=== PATIENT | male | born 1970 | race Caucasian/White ===

== ENCOUNTER 2018-07-04 07:38 | Outpatient (CLI) | payer OTHER ==
--- NOTE | 2018-07-04 10:33 | CT ---
CT of abdomen and pelvis: 07/04/2018 COMPARISON: 03/16/2013 HISTORY: "Knot" in the epigastric region, history of colon cancer with colostomy. History of chemothe rapy and radiation TECHNIQUE: Axial CT imaging is obtained at 5 mm intervals from the lung bases through the pubic symph ysis with intravenous and oral contrast. Coronal reformatted imaging obtained. FINDINGS: There are multiple subcentimeter pulmonary nodules identified within the imaged lung bases, including multiple subcentimeter pulmonary nodules within the right middle lobe and bilateral lower lobes. When compared to the 2013 examination, these pulmonary nodules are new. No free intraper itoneal air is appreciated. There is a new large heterogeneously hypodense mass lesion involving the majority of the left lobe of the liver with peripheral anterior capsular retraction. This lesion measures at least 11 cm in transverse dimension and 9 cm in craniocaudal dimension. This may represent numerous confluent lesion s or is solitary large infiltrating lesion. Gallbladder grossly unremarkable. Innumerable new small hypodense lesions are seen throughout the spleen. Pancreas, adrenal glands, and kidneys demonstrate no acute findings. Multiple stable hypodensities are noted within both kidneys suggesting multiple stable cysts. There is nonspecific soft tissue density within the presacral space. Postsurgical resection of the re ctum is noted. Left lower quadrant colostomy noted with a large associated parastomal hernia measuring 12 cm in transverse dimension. Parastomal hernia contains nonobstructed large and small bow el. There is a multifocal complex lobulated fat-containing umbilical hernia with no associated bowel. No evidence for bowel obstruction is seen. No retroperitoneal lymphadenopathy. Review of the osseous structures demonstrate no worrisome lytic or blastic lesions. IMPRESSION: Interval development of multiple subcentimeter bilateral pulmonary nodules, large irregul ar hypodense lesion replacing the majority of the left lobe of the liver, and numerous new hypodense splenic lesions. Findings are concerning for extensive metastatic disease. Large parastomal hernia and left lower quadrant. Nonspecific soft tissue density is seen in the presacral space measuring 4.6 cm transverse dimension and 2.0 cm AP dimension. Significance is uncertain without comparison imaging. This may be related to posttreatment change associated with history of rectal cancer status post treatment. Residual or r ecurrent malignancy within the presacral space cannot be excluded without comparison imaging. CODE T
[2018-07-04] MEDS ORDERED: Iopamidol 370 76% 50 ML VIAL FS ONE (17:06)
[2018-07-04] MEDS ORDERED: Iopamidol 370 76% 100 ML VIAL ONE (17:06)
== END 2018-07-04 07:39 | disposition home or self-care (01) ==
LOC: CT 07:38
PROVIDERS: ATTEND Internal Medicine
DX: R19.00 Intra-abdominal and pelvic swelling, mass and lump, unspecified site (principal); R91.8 Other nonspecific abnormal finding of lung field; K76.9 Liver disease, unspecified; D73.89 Other diseases of spleen; K43.5 Parastomal hernia without obstruction or gangrene
CPT/HCPCS: 74177; Q9967

== ENCOUNTER 2018-07-08 07:27 | Outpatient (CLI) | payer OTHER ==
--- NOTE | 2018-07-08 08:53 | CT ---
CT CHEST WITH IV CONTRAST: HISTORY: Abnormal imaging findings. COMPARISON: Abdomen and pelvis CT scan from 07/04/2018. FINDINGS: Multiple poorly defined pulmonary nodules are noted throughout both right and left lungs, including t he upper, mid, and lower lung zones, up to approximately 0.6 cm, certainly worrisome for the possibil ity of metastasis. There is a large, poorly circumscribed, enhancing mass in the left lobe of the li irene, essentially replacing the liver, up to approximately 12 cm in size. Multiple low attenuation fo ci noted within a normal sized spleen. Scattered mediastinal lymph nodes, up to approximately 1 cm s hort axis in a paratracheal node and 0.7 cm short axis in an AP window node. Other scattered mediast inal lymph nodes are noted. No significant pleural effusion. IMPRESSION: 1. Bilateral pulmonary metastasis, up to approximately 0.6 cm in size. 2. Large, abnormal enhancing left lobe of liver mass. 3. Heterogeneous, low attenuation nodularity to an otherwise normal sized spleen. 4. Up to borderline sized mediastinal lymph nodes. POS: C
[2018-07-08] MEDS ORDERED: Iopamidol 370 76% 100 ML VIAL ONE (11:50)
== END 2018-07-08 07:28 | disposition home or self-care (01) ==
LOC: CT 07:27
PROVIDERS: ATTEND Internal Medicine
DX: R91.8 Other nonspecific abnormal finding of lung field (principal); C78.02 Secondary malignant neoplasm of left lung; C78.01 Secondary malignant neoplasm of right lung; R16.0 Hepatomegaly, not elsewhere classified
CPT/HCPCS: 71260; Q9967

== ENCOUNTER 2018-07-14 08:22 | Day surgery (SDC) | payer OTHER ==
[2018-07-13 14:00] VITALS: BMI 30.4
[2018-07-14] MEDS ORDERED: Prevnar 13-Val Conj/PF 0.5 ML SYRINGE IM ONE (09:00)
[2018-07-14 09:11] LABS: Hemoglobin 15.1 g/dL (14.0-18.0); Mean Corpuscular HGB CONC 31.6 g/dL (32.0-36.0); Mean Corpuscular Volume 91.8 fL (78.0-98.0); Mean Platelet Volume 7.5 fL (7.4-10.4); Platelet Count 351 thou/uL (130-400); RBC Distribution Width 12.6 % (11.5-14.5); Red Blood Cell (RBC) Count 5.21 mill/uL (4.70-6.10); White Blood Cell (WBC) Count 5.3 thou/uL (4.8-10.8)
[2018-07-14 09:20] LABS: Band 8 % (5-11); Eosinophils 1 % (0-10); Lymphocytes 20 % (21-51); MDiff Complete? YES; Monocytes 25 % (0-10); Neutrophil 44 % (42-75); RBC Morphology Normal; Reactive Lymphocytes 2 % (0-10)
[2018-07-14 09:40] VITALS: BP 133/96; TEMP 98.5
[2018-07-14] MEDS ORDERED: Midazolam HCl 2 mg/2 ml Vial ONE (10:08)
[2018-07-14] MEDS ORDERED: Fentanyl 100 MCG/2 ML VIAL ONE (10:08)
[2018-07-14] MEDS ORDERED: Sodium Bicarbonate 2.5 MEQ/5 ML VIAL ONE (10:09)
--- NOTE | 2018-07-14 14:15 | CT ---
EXAM: CT Liver Perc Biopsy PROVIDED CLINICAL HISTORY: Left hepatic lobe mass in a patient with history of rectal cancer. COMPARISON: 07/04/2018 TECHNIQUE: The procedure including the risks and complications were explained to the patient, and informed conse nt was obtained. Patient was placed on the CT scan table in the supine position. Limited noncontrasted CT scan was obtained through the liver with grid localizer in place overlying the midli ne upper abdomen. An area was marked and then meticulously prepped and draped in usual sterile fashion. The skin and subcutaneous tissues were infiltrated with buffered 1% lidocaine for local anesthesia. A small skin incision was made. A 17-gauge guide needle was advanced followed by axial noncontrasted CT images. This was repeated until the needle was placed just within the anterior aspect of the later al segment left hepatic lobe. A total of 2 18-gauge core needle biopsy specimens were obtained utilizing coaxial technique. The pathologist was available for evaluation of the specimens and noted malignant cells were present on touch prep. No additional biopsies were requested. The needle was removed, and hemostasis was achieved with direct pressure. Dry sterile dressing was pl aced. Patient tolerated the procedure well and without immediate complication. Patient was transported to radiology nurses holding area for further monitoring. IMPRESSION: Technically successful CT-guided percutaneous biopsy of a large mass in the lateral segment left hepa tic lobe.
== END 2018-07-14 12:15 | disposition home or self-care (01) ==
LOC: CT 08:22
PROVIDERS: ATTEND Specialist
PROC: [UNRECOGNIZED PROCEDURE] (principal; 2018-07-14)
PROC: 0FB23ZX Excision of Left Lobe Liver, Percutaneous Approach, Diagnostic (ICD-10-PCS; principal; 2018-07-14)
DX: C18.9 Malignant neoplasm of colon, unspecified (principal); C79.9 Secondary malignant neoplasm of unspecified site; I10 Essential (primary) hypertension; D64.9 Anemia, unspecified; F41.9 Anxiety disorder, unspecified; G89.29 Other chronic pain; Z79.899 Other long term (current) drug therapy; Z87.891 Personal history of nicotine dependence
CPT/HCPCS: 36415; 47000; 77002; 85025; 88307; 88333; 88334; 88341; 88342; J2250; J3010

== ENCOUNTER 2018-07-21 07:55 | Day surgery (SDC) | payer OTHER ==
[2018-07-20 10:14] VITALS: BMI 29.0
[2018-07-21] MEDS ORDERED: Ketorolac Tromethamine 30 MG/ML VIAL ONE (08:56)
[2018-07-21] MEDS ORDERED: Lidocaine 2% PF 5 ML VIAL ONE (11:13)
[2018-07-21] MEDS ORDERED: Bupivacaine/Epinephrine 0.25% 30 ML VIAL ONE (11:13)
[2018-07-21] MEDS ORDERED: Lidocaine 1% (PF) 30 ML VIAL ONE (11:14)
[2018-07-21] MEDS ORDERED: Fentanyl 100 MCG/2 ML VIAL ONE (11:19)
[2018-07-21] MEDS ORDERED: Midazolam HCl 2 mg/2 ml Vial ONE (11:19)
--- NOTE | 2018-07-21 12:55 | RAD ---
SINGLE VIEW OF THE CHEST: 07/21/18 COMPARISON: None. HISTORY: Mediport placement. FINDINGS: Single view of the chest shows a normal sized cardiomediastinal silhouette. There is a right subclavi an Mediport with its tip in the superior vena cava. No pneumothorax is seen. There is no evidence of consolidation, mass, or pleural effusion. IMPRESSION: Status post Mediport placement without evidence of complication. POS: [facility]
--- NOTE | 2018-07-22 13:47 | OP ---
DATE OF PROCEDURE: 07/21/2018 PREOPERATIVE DIAGNOSIS: Metastatic rectal cancer. POSTOPERATIVE DIAGNOSIS: Metastatic rectal cancer. OPERATION PERFORMED: Placement of right subclavian standard-size MediPort. ANESTHESIA: Total intravenous anesthesia with local using 0.25% Marcaine with epinephrine. INDICATIONS: The patient is a 47-year-old white male. He underwent abdominoperineal resection for distal rectal cancer, almost 5 years ago. He unfortunately was noncompliant with followup. At the point that he returned, he had a large metastatic rectal cancer to his liver. He was taken to the operating room at this time for MediPort placement for chemotherapy administration. DESCRIPTION OF OPERATION: Informed consent was obtained. The patient was taken to the operating room where total intravenous anesthesia was obtained with the patient in supine position. Right periclavicular area was prepped with ChloraPrep and draped in sterile fashion. Local anesthetic was infiltrated and a large-gauge needle was passed under the clavicle in the subclavian vein. Guidewire was passed through the needle and fluoroscopically confirmed to enter the superior vena cava. Additional local anesthetic was infiltrated and transverse incision was created based on needle insertion site. A subcutaneous pocket was dissected inferiorly. Introducer dilator was passed over the guidewire under fluoroscopic guidance. The guidewire and dilator were removed, and the catheter was passed through the introducer. The tip of the catheter was positioned at the atriocaval junction and the catheter was trimmed to the appropriate length and secured to the locking hub of the MediPort. The port was then placed in the subcutaneous pocket where it was secured to the pectoral fascia with 2 interrupted sutures of 3-0 Prolene. The incision was then closed in layers with 3-0 and 4-0 Monocryl. Additional local anesthetic was infiltrated. The port was cannulated with a Sanches needle and it aspirated blood freely and was flushed with heparinized saline. Dermabond was placed externally on the skin incision. There were no complications. Blood loss was negligible. The patient tolerated the procedure well and was taken to recovery room in stable condition. FINDINGS: I placed a standard-size power compatible MediPort in the right subclavian vein. His anatomy was standard both internally and externally. Fluoroscopy was used throughout. There were essentially no blood loss and no complications. The patient tolerated the procedure well, and postprocedure chest x-ray confirmed appropriate placement. Job ID: [id number]
--- NOTE | 2018-07-23 13:46 | EKG ---
Test Reason : PREOP Blood Pressure : / mmHG Vent. Rate : 076 BPM Atrial Rate : 076 BPM P-R Int : 156 ms QRS Dur : 086 ms QT Int : 388 ms P-R-T Axes : 054 057 008 degrees QTc Int : 436 ms Normal sinus rhythm T wave abnormality, consider inferior ischemia Abnormal ECG No previous ECGs available Confirmed by DR. Maritza LOCK ([id number]) on 07/23/2018 1:45:36 PM Referred By: ELLA Confirmed By:DR. Maritza LOCK
== END 2018-07-21 13:37 | disposition home or self-care (01) ==
LOC: SDC 07:55
PROVIDERS: ATTEND Specialist
PROC: 05H533Z Insertion of Infusion Device into Right Subclavian Vein, Percutaneous Approach (ICD-10-PCS; principal; 2018-07-21)
PROC: B5161ZA Fluoroscopy of Right Subclavian Vein using Low Osmolar Contrast, Guidance (ICD-10-PCS; principal; 2018-07-21)
DX: C20 Malignant neoplasm of rectum (principal); C79.9 Secondary malignant neoplasm of unspecified site; R16.0 Hepatomegaly, not elsewhere classified; R91.8 Other nonspecific abnormal finding of lung field; I10 Essential (primary) hypertension; Z98.890 Other specified postprocedural states; Z87.891 Personal history of nicotine dependence; Z79.51 Long term (current) use of inhaled steroids; Z79.899 Other long term (current) drug therapy
CPT/HCPCS: 71045; 76000; 93005; 93010; C1788; J0131; J0690; J1642; J1885; J2001; J2250; J3010

== ENCOUNTER 2019-02-16 07:57 | Outpatient (CLI) | payer OTHER ==
--- NOTE | 2019-02-16 11:49 | PET ---
PET CT: HISTORY: 48-year-old male with rectal cancer and liver mets. Exam requested to evaluate response to treatment. Last chemotherapy was 12/28/18. TECHNIQUE: PET scanning with CT attenuation correction was performed from the base of the brain through the prox imal thighs following the intravenous administration of 12.6 mCi [id number] in the right antecubital fos sa. COMPARISON: None. CORRELATION: CT chest, abdomen, and pelvis of 10/24/18. FINDINGS: There is hypermetabolic activity in the partially calcified left hepatic lobe mass measuring 6.3 x 5. 1 cm, and has a SUV of 3.7. No jessica hypermetabolism is seen in the neck, chest, axilla, abdomen, or pelvis. No hypermetabolic pulmonary nodules, adrenal, or skeletal lesions are seen. There is physiologic activity in the GI and tracts, and the visualized portions of the brain. The CT scan used for attenuation correction demonstrates no evidence of pleural effusions or ascites. Bilateral renal cysts and left lower quadrant colostomy are again seen. IMPRESSION: Solitary left hepatic lobe metastasis. POS: [facility]
== END 2019-02-16 07:58 | disposition home or self-care (01) ==
LOC: PET 07:57
PROVIDERS: ATTEND Internal Medicine Hematology & Oncology
DX: C78.7 Secondary malignant neoplasm of liver and intrahepatic bile duct (principal); C20 Malignant neoplasm of rectum
CPT/HCPCS: 78815; A9552

== ENCOUNTER 2019-06-30 12:20 | Outpatient (CLI) | payer OTHER ==
[~2019-06-30 12:20] MED LIST: Iopamidol-370 76% 500 ML 1 ML ONE
--- NOTE | 2019-06-30 16:38 | CT ---
CT CHEST WITH CONTRAST CT ABDOMEN WITH CONTRAST CT PELVIS WITH CONTRAST 06/30/19 HISTORY: Rectal cancer with liver and lung mets. COMPARISON: CT exam 10/24/18. PET CT 02/16/19. Dating back to June of 2018, there has been on significant interval growth of the previously described pulmonary nodules with some of the nodules actually decreasing in size. No new suspicious pulmonary nodule. No pneumothorax. No effusion. No mediastinal adenopathy. No pericardial effusion. There is a new midline surgical scar without hepatectomy change. The left hepatic mass has not had an y significant interval growth and still measures up to 8.1 cm in greatest dimension. There are internet sales director al calcifications. Slight atrophy of the left lobe of the liver, treatment changes around the solita ry left large hepatic metastatic mass. Left lower quadrant ostomy is similar. There is a small bowel containing left parastomal hernia witho ut evidence for obstruction. The cecum extends down into the deep pelvis. Similar appearance to the cyst of the anterior cortex superior pole left kidney. No hydroureteronephr osis. Similar appearance to the cyst anterior pole right kidney. No new abdominal or pelvic adenopath y. Sternum and manubrium are intact. Thoracic and lumbar spine are intact. No suspicious lytic or blasti c lesions. 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 No displaced rib fracture. IMPRESSION: 1. Unchanged pulmonary nodules from the prior examination with a few nodules having decreased fr om the June 2018 exam. No new pulmonary nodules. 2. Unchanged size of the central necrotic metastatic focus with central and peripheral calcifica tions left lobe of the liver with some atrophy, post treatment in nature. Small volume fluid adjacent to the metastatic deposit in the left lobe of the liver post treatment in nature. 3. New midline supraumbilical linear scar without hepatectomy change. 4. Small bowel containing left parastomal hernia without obstruction. 5. Fat containing umbilical hernia without obstruction. POS: [facility]
== END 2019-06-30 12:21 | disposition home or self-care (01) ==
LOC: BICCT 12:20
PROVIDERS: ATTEND Internal Medicine Hematology & Oncology
DX: C20 Malignant neoplasm of rectum (principal); C78.7 Secondary malignant neoplasm of liver and intrahepatic bile duct; C78.00 Secondary malignant neoplasm of unspecified lung; K42.9 Umbilical hernia without obstruction or gangrene; K43.5 Parastomal hernia without obstruction or gangrene; K72.90 Hepatic failure, unspecified without coma; L90.5 Scar conditions and fibrosis of skin; R91.8 Other nonspecific abnormal finding of lung field; Z90.49 Acquired absence of other specified parts of digestive tract
CPT/HCPCS: 71260; 74177; Q9967

== ENCOUNTER 2020-02-09 07:35 | Outpatient (CLI) | payer OTHER ==
--- NOTE | 2020-02-09 10:38 | CT ---
CT CHEST WITH IV COTNRAST CT ABDOMEN WITH CONTRAST CT PELVIS WITH IV CONTRAST: HISTORY: Rectal cancer with liver and lung mets. Malignant neoplasm of rectum. Secondary malignant neoplasm of liver and intrahepatic bile duct. A granular leukocytosis secondary to cancer chemotherapy. COMPARISON: 06/30/2019. FINDINGS: A 9 mm right paratracheal lymph node is stable. No mediastinal, hilar, or axillary mass or lymphaden opathy is otherwise seen. No pleural or pericardial effusions are identified. Tiny parenchymal lung nodules are stable. No new lung nodules are seen. The partially calcified mass in the left lobe of the liver appears larger measuring 9 cm in largest d imension. A small amount of fluid adjacent to the left lobe of the liver, post treatment in nature, is again seen. There are new lesions in the liver measuring up to 2 cm. Bilateral renal cysts are again seen. The spleen, pancreas, and adrenal glands are normal. No free air, free fluid, or lymphadenopathy seen in the abdomen or pelvis. Presacral soft tissue density is stable. Small bowel containing parastomal hernia, left lower quadrant ostomy, and fat containing umbilical he rnia are again seen. The small bowel loops are not abnormally dilated. There are vascular calcifications without evidence of aneurysmal dilatation of the thoracoabdominal a darian. The sclerotic lesions in the left 3rd rib are again seen. No new osteolytic or osteoblastic l esions are identified. IMPRESSION: Interval worsening of hepatic metastatic disease since 07/31/2019. POS: [facility]
[2020-02-09] MEDS ORDERED: Iopamidol-370 76% 500 ML 1 ML ONE (13:16)
== END 2020-02-09 07:36 | disposition home or self-care (01) ==
LOC: BICCT 07:35
PROVIDERS: ATTEND Internal Medicine Hematology & Oncology
DX: C20 Malignant neoplasm of rectum (principal); C78.00 Secondary malignant neoplasm of unspecified lung; C78.7 Secondary malignant neoplasm of liver and intrahepatic bile duct
CPT/HCPCS: 71260; 74177; Q9967

== ENCOUNTER 2020-05-02 13:15 | Outpatient (CLI) | payer OTHER ==
[2020-05-02] MEDS ORDERED: Iopamidol 370 76% 100 ML VIAL ONE (13:19)
== END 2020-05-02 13:16 | disposition home or self-care (01) ==
LOC: BICCT 13:15
PROVIDERS: ATTEND Internal Medicine Hematology & Oncology
DX: C20 Malignant neoplasm of rectum (principal); C78.7 Secondary malignant neoplasm of liver and intrahepatic bile duct; D70.1 Agranulocytosis secondary to cancer chemotherapy; R91.8 Other nonspecific abnormal finding of lung field
CPT/HCPCS: 71260; 74177; Q9967

== ENCOUNTER 2020-08-20 07:58 | Outpatient (CLI) | payer OTHER ==
[2020-08-20] MEDS ORDERED: Iopamidol-370 76% 500 ML 1 ML ONE (09:42)
== END 2020-08-20 07:59 | disposition home or self-care (01) ==
LOC: BICCT 07:58
PROVIDERS: ATTEND Internal Medicine Hematology & Oncology
DX: C20 Malignant neoplasm of rectum (principal); C78.7 Secondary malignant neoplasm of liver and intrahepatic bile duct; R91.1 Solitary pulmonary nodule; D70.1 Agranulocytosis secondary to cancer chemotherapy; K76.9 Liver disease, unspecified; R91.8 Other nonspecific abnormal finding of lung field; K94.09 Other complications of colostomy; K72.90 Hepatic failure, unspecified without coma; N28.1 Cyst of kidney, acquired; N28.9 Disorder of kidney and ureter, unspecified; K43.9 Ventral hernia without obstruction or gangrene; K42.9 Umbilical hernia without obstruction or gangrene; Z98.890 Other specified postprocedural states
CPT/HCPCS: 71260; 74177; Q9967

== ENCOUNTER 2020-12-20 08:31 | Outpatient (CLI) | payer OTHER ==
[2020-12-20] MEDS ORDERED: Iopamidol-370 76% 500 ML 1 ML ONE (10:32)
== END 2020-12-20 08:32 | disposition home or self-care (01) ==
LOC: BICCT 08:31
PROVIDERS: ATTEND Internal Medicine Hematology & Oncology
DX: C20 Malignant neoplasm of rectum (principal); C78.7 Secondary malignant neoplasm of liver and intrahepatic bile duct; R59.0 Localized enlarged lymph nodes; K83.8 Other specified diseases of biliary tract; R91.8 Other nonspecific abnormal finding of lung field; Z93.3 Colostomy status; M79.89 Other specified soft tissue disorders
CPT/HCPCS: 71260; 74177; Q9967

== ENCOUNTER 2021-03-03 15:47 | Inpatient (IN) | payer OTHER ==
[2021-03-03] MEDS ORDERED: Bisacodyl 5 MG TAB PO PRN (18:17)
[2021-03-03] MEDS ORDERED: Calcium Carbonate 500 MG ChewTAB PO PRN (18:17)
[2021-03-03] MEDS ORDERED: Ondansetron PF 4 MG/2 ML Vial IVP PRN (18:17)
[2021-03-03] MEDS ORDERED: Senokot S 8.6-50 MG TAB PO PRN (18:17)
[2021-03-03 18:59] LABS: #Eosinphils 0.3 thou/uL (0.0-0.7); #Lymphocytes 1.1 thou/uL (1.20-3.40); #Monocytes 0.9 thou/uL (0.11-0.59); #Neutrophils 4.2 thou/uL (1.40-6.50); %Basophils 0.5 % (0.0-1.0); %Eosinophils 4.4 % (0.0-10.0); %Lymphocytes 17.4 % (21.0-51.0); %Monocytes 13.6 % (0.0-10.0); %Neutrophils 64.1 % (42.0-75.0); Hemoglobin 13.5 g/dL (14.0-18.0); Mean Corpuscular HGB CONC 32.9 g/dL (32.0-36.0); Mean Corpuscular Hemoglobin 30.9 pg (27.0-31.0); Mean Corpuscular Volume 94.1 fL (78.0-98.0); Mean Platelet Volume 9.3 fL (7.4-10.4); Platelet Count 285 thou/uL (130-400); RBC Distribution Width 13.5 % (11.5-14.5); Red Blood Cell (RBC) Count 4.35 mill/uL (4.70-6.10); White Blood Cell (WBC) Count 6.5 thou/uL (4.8-10.8)
[2021-03-03] MEDS ORDERED: Acetaminophen 650 MG Suppository PR PRN (23:38)
[2021-03-04] MEDS: Acetaminophen 325 MG TAB PO PRN ×2 (00:07→18:15)
[2021-03-04 06:11] LABS: ALT (SGPT) 290 U/L (8-55); AST (SGOT) 207 U/L (5-34); Albumin 3.3 g/dL (3.5-5.0); Alkaline Phosphatase 1008 U/L (40-110); Anion Gap 11 mmol/L (10-20); BUN (Urea Nitrogen) 10 mg/dL (8.9-20.6); Bilirubin, Total 14.3 mg/dL (0.2-1.2); Calc. Creatinine Clearance 135 mL/min (70-130); Calcium 9.9 mg/dL (7.8-10.44); Carbon Dioxide 26 mmol/L (22-29); Chloride 102 mmol/L (98-107); Glucose 103 mg/dL (70-105); Potassium 3.8 mmol/L (3.5-5.1); Protein, Total 6.6 g/dL (6.0-8.3); Sodium 135 mmol/L (136-145)
[2021-03-04 06:41] LABS: Bilirubin, Direct 10.6 mg/dL (0.1-0.3)
[2021-03-04] MEDS: Enoxaparin Sodium 40 MG/0.4 ML SYRINGE SC SCH (08:59)
[2021-03-04 11:35] LABS: Band 4 % (5-11); Eosinophils 3 % (0-10); Hemoglobin 12.6 g/dL (14.0-18.0); Hypochromia SLIGHT = 6-15 cells (100X) (0-5/hpf); Lymphocytes 24 % (21-51); MDiff Complete? YES; Mean Corpuscular HGB CONC 33.4 g/dL (32.0-36.0); Mean Corpuscular Hemoglobin 31.4 pg (27.0-31.0); Mean Platelet Volume 8.9 fL (7.4-10.4); Monocytes 12 % (0-10); Neutrophil 57 % (42-75); Platelet Count 240 thou/uL (130-400); Platelet Morphology Comment Appears Adequate; Polychromasia SLIGHT = 2-3 cells (100X) (0-2/hpf); RBC Distribution Width 13.5 % (11.5-14.5); Red Blood Cell (RBC) Count 4.01 mill/uL (4.70-6.10); Stomatocytes SLIGHT = 2-5 cells (100X) (0-1/hpf); Target Cells SLIGHT = 2-5 cells (100X) (0-1/hpf); White Blood Cell (WBC) Count 5.5 thou/uL (4.8-10.8)
[2021-03-04 11:36] LABS: SARS-CoV-2 PCR by NAA Not Detected (NotDetected)
[2021-03-04 12:58] VITALS: BMI 28.5
[2021-03-04] MEDS: Cholestyramine/Aspartame 4 gm Packet PO SCH (20:48)
[2021-03-05 06:35] LABS: ALT (SGPT) 276 U/L (8-55); AST (SGOT) 203 U/L (5-34); Albumin 3.3 g/dL (3.5-5.0); Alkaline Phosphatase 993 U/L (40-110); Anion Gap 13 mmol/L (10-20); BUN (Urea Nitrogen) 8 mg/dL (8.9-20.6); Bilirubin, Total 14.9 mg/dL (0.2-1.2); Calc. Creatinine Clearance 141 mL/min (70-130); Calcium 9.7 mg/dL (7.8-10.44); Carbon Dioxide 25 mmol/L (22-29); Chloride 102 mmol/L (98-107); Globulin 3.3 g/dL (2.4-3.5); Glucose 108 mg/dL (70-105); Potassium 3.8 mmol/L (3.5-5.1); Protein, Total 6.6 g/dL (6.0-8.3); Sodium 136 mmol/L (136-145)
[2021-03-05 08:54] VITALS: BP 133/89; TEMP 98.5
[2021-03-05] MEDS: Cholestyramine/Aspartame 4 gm Packet PO SCH (09:51)
[2021-03-05] MEDS: Enoxaparin Sodium 40 MG/0.4 ML SYRINGE SC SCH (09:51)
== END 2021-03-05 13:55 | disposition home or self-care (01) | DRG 445 ==
LOC: MSONC 15:47
PROVIDERS: ADMIT Internal Medicine Hematology & Oncology; ATTEND Internal Medicine
DX: K83.1 Obstruction of bile duct (principal); C78.7 Secondary malignant neoplasm of liver and intrahepatic bile duct; C19 Malignant neoplasm of rectosigmoid junction; Z20.822 Contact with and (suspected) exposure to COVID-19; I10 Essential (primary) hypertension; Z93.3 Colostomy status; Z90.49 Acquired absence of other specified parts of digestive tract; Z79.899 Other long term (current) drug therapy; D70.1 Agranulocytosis secondary to cancer chemotherapy
CPT/HCPCS: 36415; 71260; 74177; 80048; 80053; 80076; 82248; 82378; 83615; 84100; 84550; 85025; J1650; J2405; Q9967; U0003; U0005

== ENCOUNTER 2021-06-30 08:03 | Outpatient (CLI) | payer OTHER ==
[2021-06-30] MEDS ORDERED: Iopamidol 370 76% 100 ML VIAL ONE (09:08)
== END 2021-06-30 08:04 | disposition home or self-care (01) ==
LOC: CT 08:03
PROVIDERS: ATTEND Internal Medicine Hematology & Oncology
DX: C20 Malignant neoplasm of rectum (principal); C78.7 Secondary malignant neoplasm of liver and intrahepatic bile duct
CPT/HCPCS: 71260; 74177; Q9967